=== PATIENT | female | born 1995 | race Caucasian/White ===

== ENCOUNTER 2016-07-22 10:20 | Observation (INO) | payer MEDICAID ==
[~2016-07-22 10:20] MED LIST: PRENATAL PLUS I1 TAB PO
== END 2016-07-23 11:55 | disposition short-term general hospital (02) ==
LOC: LDRIP 10:20 → LDROP 10:20 → LDRIP 07-23 11:55
PROVIDERS: ADMIT Family Medicine
DX: O60.03 Preterm labor without delivery, third trimester (principal); O21.9 Vomiting of pregnancy, unspecified; E86.0 Dehydration; O99.013 Anemia complicating pregnancy, third trimester; D50.9 Iron deficiency anemia, unspecified; Z87.440 Personal history of urinary (tract) infections; Z3A.35 35 weeks gestation of pregnancy
CPT/HCPCS: A9150; G0378; G0379; G0477; J0702; J2405; J8499

== ENCOUNTER 2016-08-17 16:23 | Inpatient (IN) | payer MEDICAID ==
[~2016-08-17] VITALS: Ht 167.6 cm; Wt 66.7 kg
[2016-08-19] MEDS ORDERED: MOTRIN800 MG PO (13:16)
[2016-08-19] MEDS ORDERED: COLACE100 MG PO (13:16)
[2016-08-19] MEDS ORDERED: NORCO 325-5 MG1 TAB PO (13:17)
== END 2016-08-19 14:35 | disposition short-term general hospital (02) | DRG 775 ==
LOC: OBS 16:23 → LDRIP 20:05
PROVIDERS: ADMIT Family Medicine
PROC: 10907ZC Drainage of Amniotic Fluid, Therapeutic from Products of Conception, Via Natural or Artificial Opening (ICD-10-PCS; principal; 2016-08-18)
PROC: 3E0P7GC Introduction of Other Therapeutic Substance into Female Reproductive, Via Natural or Artificial Opening (ICD-10-PCS; principal; 2016-08-18)
PROC: 10E0XZZ Delivery of Products of Conception, External Approach (ICD-10-PCS; principal; 2016-08-18)
DX: O80 Encounter for full-term uncomplicated delivery (principal); Z3A.39 39 weeks gestation of pregnancy; Z37.0 Single live birth
CPT/HCPCS: A9150; J2300; J2310; J2370; J2590; J2795; J3010